=== PATIENT | male | born 2000 | race Caucasian/White ===

== ENCOUNTER → 2019-07-22 13:13 | Outpatient (BNVA) | payer SELFPAY | PROVIDERS: Visit Provider Nurse Practitioner Family | DX: R50.9 Fever, unspecified (principal) | CPT/HCPCS: 87400; 87635 ==

== ENCOUNTER 2020-06-21 12:14 | Emergency (ER) | payer SELFPAY ==
[2020-06-21 12:44] VITALS: BP 128/76; PULSE 97; RESP 16; TEMP 36.5; O2SAT 98; BMI 27.3
[2020-06-21 13:06] VITALS: PULSE 94
[2020-06-21 13:09] VITALS: BP 126/76; PULSE 97; RESP 16; O2SAT 98
--- NOTE | 2020-06-21 13:22 | W.ED.EXTPRO ---
HPI - Extremity Problem General: Chief complaint: Extremity Problem,Nontraumatic Stated complaint: numbness/tingling right hand Time Seen by Provider: 06/21/20 13:08 Source: patient Mode of arrival: ambulatory Limitations: no limitations History of Present Illness: HPI Narrative: Patient is a 20-year-old male who presents to ED today with complaints of intermittent paresthesias to his right upper extremity. Patient tells me he will notice symptoms with excessive use of his arms and also when he is sleeping. He states symptoms will improve if he hangs his arm down to the side. He reports paresthesias to all 5 digits. He states he does use his arms repetitively for work. He does not complain of neck pain. No recent injury or trauma. He has not noticed weakness to his arm. Patient has not noticed any swelling, color, or temperature changes. MD Complaint: other (tingling to R arm) Onset (ago): day(s) Pain Consistency: intermittent (no pain; only parasthesias ) Associated symptoms: Reports no associated symptoms; Deny chest pain or fever(s) Review of Systems Const: Denies: fever(s) or chills Eyes: Denies: change in vision, blurry vision or photophobia Card: Denies: chest pain, palpitations, irregular heart rhythm, edema, swelling of feet/ankles, lightheadedness, syncope, pre-syncope, dyspnea on exertion, orthopnea, leg pain with exertion or acrocyanosis Resp: Denies: dyspnea Musc: Reports: back pain; Denies: neck pain, extremity pain, extremity swelling, joint pain, joint swelling or limited range of motion Neuro: Reports: numbness in extremities and sensory changes; Denies: headache(s), weakness in extremities or dizziness [facility] ED PFS: Social History (Updated 06/21/20 @ 12:48 by Domingo Best RN) Smoking and tobacco status: current every day smoker cigarettes Packs smoked per day: 0.25 Alcohol intake: never Substance/Drug Use: never Physical Exam Const: COMMON NORMALS: no acute distress, average body habitus, patient oriented x3, no limitations, healthy appearing, alert and well nourished GENERAL APPEARANCE: cooperative ORIENTATION/CONSCIOUSNESS: Yes awake, Yes oriented to person, Yes oriented to place and Yes oriented to time HENMT: COMMON NORMALS: normocephalic and atraumatic HEAD & SCALP: normocephalic and atraumatic Neck/C-Spine: COMMON NORMALS: full ROM CERVICAL SPINE: Yes cervical ROM normal, No pain with cervical ROM, No Cervical spine tenderness and No Paracervical muscle tenderness Resp: COMMON NORMALS: normal respiratory effort and clear to auscultation bilaterally AUSCULTATION: clear to auscultation bilaterally Cardio: COMMON NORMALS: regular rate and regular rhythm RATE: regular rate RHYTHM: regular rhythm Back/Pelvis: COMMON NORMALS: thoracic and lumbar spine normal to inspection, no thoracic nor lumbar tenderness and thoraco-lumbar ROM normal THORACIC SPINE/UPPER BACK: Yes normal to inspection and Yes thoracic ROM normal LUMBAR SPINE/LOWER BACK: Yes normal to inspection and Yes lumbar ROM normal BACK IMAGE (MALE): 1. TTP Extremity: COMMON NORMALS: normal to inspection and full ROM GENERAL: Yes normal exam except as noted Neuro: COMMON NORMALS: patient oriented x3, moves all extremities, no focal motor deficits and no sensory deficits noted SENSORIUM/ORIENTATION: Yes alert, Yes oriented to person, Yes oriented to place and Yes oriented to time OTHER: reports he is not having any numbnes/tingling currently Skin: COMMON NORMALS: no rashes or lesions noted GENERAL SKIN EXAM: no rashes or lesions noted Course Vital Signs: Vital signs: Vital Signs Temperature 97.7 F 06/21/20 12:44 Pulse Rate 97 06/21/20 13:09 Respiratory Rate 16 06/21/20 13:09 Blood Pressure 126/76 06/21/20 13:09 Pulse Oximetry 98 06/21/20 13:09 Discharge Plan Discharge Patient Disposition: Home Clinical Impression: Right cervical radiculopathy Condition: Stable Prescriptions: New cyclobenzaprine 10 mg tablet 10 mg PO TID Qty: 14 RF: 0 diclofenac sodium 50 mg tablet,delayed release (DR/EC) 50 mg PO Q12H PRN (Reason: pain) Qty: 20 RF: 0 Medrol (Blake) 4 mg tablets,dose pack See Rx Instructions .ROUTE .COMPLEX Qty: 21 RF: 0 Discharge Orders: Discharge ED (Routine); Ordered 06/21/20 Ordered By: Flor Vora Patient Instructions: Cervical Radiculopathy (ED), Opioid Safety Activity Restrictions/Additional Instructions: [facility] the [facility] opiate epidemic. We are providing ALL patients with information regarding opiate safety. If you received opiate pain medication during your stay or if you received a prescription for opiate pain medication-please review this handout. If not, you may disregard. Thank you. As discussed I placed your information with case management to get you set up with a primary care provider in case symptoms do not improve. Stand Alone Forms: Work/School Release Coding Level of Care Code ED Toe Sewer for Petrona Littlejohn
--- NOTE | 2020-06-25 15:36 | DCPLANNER ---
athletic equipment manager had message to speak with patient about getting established with a primary care physician. athletic equipment manager called phone number [phone], unable to speak with patient at this time, a voicemail was left for patient to return family caseworker phone call.
== END 2020-06-21 14:43 | disposition home or self-care (01) ==
PROVIDERS: Emergency Provider Physician Assistant
DX: M54.12 Radiculopathy, cervical region (principal); F17.210 Nicotine dependence, cigarettes, uncomplicated
CPT/HCPCS: 99281

== ENCOUNTER → 2020-07-19 14:59 | Outpatient (BNVA) | payer OTHER, SELFPAY | PROVIDERS: Visit Provider Family Medicine Adult Medicine | DX: Z20.822 Contact with and (suspected) exposure to COVID-19 (principal) | CPT/HCPCS: 87635 ==

== ENCOUNTER → 2020-11-05 14:21 | Outpatient (BNVA) | payer BC, SELFPAY | PROVIDERS: Visit Provider Nurse Practitioner Family | DX: Z20.822 Contact with and (suspected) exposure to COVID-19 (principal) | CPT/HCPCS: 87635 ==

== ENCOUNTER 2021-05-13 18:35 | Emergency (ER) | payer BC, SELFPAY ==
[2021-05-13 18:53] VITALS: BP 122/59; PULSE 84; RESP 18; TEMP 37.1; O2SAT 100; BMI 28.8
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
[2021-05-13 22:19] VITALS: BP 125/63; PULSE 82; RESP 18; TEMP 37; O2SAT 100
== END 2021-05-13 22:20 | disposition home or self-care (01) ==
PROVIDERS: Emergency Provider Physician Assistant
DX: S69.92XA Unspecified injury of left wrist, hand and finger(s), initial encounter (principal); F17.210 Nicotine dependence, cigarettes, uncomplicated; X58.XXXA Exposure to other specified factors, initial encounter
CPT/HCPCS: 73110; 73130; 99282

== ENCOUNTER → 2022-11-20 13:01 | Outpatient (BNVA) | payer MEDICAID, SELFPAY | PROVIDERS: Visit Provider Nurse Practitioner Family | DX: Z72.51 High risk heterosexual behavior (principal) | CPT/HCPCS: 87491; 87591; 87661 ==

== ENCOUNTER 2023-08-08 13:39 | Emergency (ER) | payer SELFPAY ==
[2023-08-08 13:42] VITALS: BP 149/85; PULSE 87; RESP 20; O2SAT 95
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
[2023-08-08 14:18] LABS: Basophils # 0.1 10^3/uL (0.0-0.1); Basophils % 0.5 %; Eosinophils # 0.2 10^3/uL (0.0-0.8); Eosinophils % 1.4 %; Hematocrit 42.3 % (37-53); Lymphocytes # 1.9 10^3/uL (0.8-4.8); Lymphocytes % 16.9 %; Mean Corpuscular HGB Conc 35.2 g/dL (30-55); Mean Corpuscular Hemoglobin 30.4 pg (27-33); Mean Corpuscular Volume 86.3 fl (82-101); Mean Platelet Volume 9.5 fL (7.4-10.4); Monocytes # 0.8 10^3/uL (0.2-0.9); Monocytes % 6.9 %; Neutrophils # 8.11 10^3/uL (1.8-7.7); Neutrophils % 73.9 %; Nucleated Red Blood Cells % 0 %; Platelet Count 237 10^3/cmm (157-399); Red Cell Distribution Width 12.5 % (12.1-15.1); White Blood Count 10.98 10^3/uL (3.29-11.43)
[2023-08-08 14:37] LABS: Alanine Aminotransferase 28 U/L (0-41); Albumin Level 4.5 g/dL (3.5-5.2); Alkaline Phosphatase 128 U/L (40-130); Anion Gap 11.6 (5-19); Aspartate Amino Transferase 39 U/L (0-40); Blood Urea Nitrogen 16 mg/dL (6-20); Calcium 9.3 mg/dL (8.5-10.5); Carbon Dioxide 24 mmol/L (22-29); Chloride 105 mmol/L (98-107); Creatinine Clr Calc Pharmacy 149.1518; Globulin 2.6 g/dL (1.3-4.6); Glomerular Filtration Rate 118.8 mL/min (90-130); Glucose 113 mg/dL (65-115); Osmolality Calculated 284 mOsm/kg (285-295); Potassium 4.6 mmol/L (3.5-5.1); Sodium 136 mmol/L (136-145); Total Bilirubin 0.4 mg/dL (0.15-1.2); Total Protein 7.1 g/dL (6.6-8.7)
[2023-08-08] MEDS: tetanus-dipt-pertussis 0.5 mL SDV IM (15:20)
== END 2023-08-08 15:22 | disposition home or self-care (01) ==
PROVIDERS: Emergency Provider Family Medicine
DX: S40.211A Abrasion of right shoulder, initial encounter (principal); S30.811A Abrasion of abdominal wall, initial encounter; S20.311A Abrasion of right front wall of thorax, initial encounter; F17.210 Nicotine dependence, cigarettes, uncomplicated; V86.69XA Passenger of other special all-terrain or other off-road motor vehicle injured in nontraffic accident, initial encounter; Z23 Encounter for immunization
CPT/HCPCS: 36415; 70450; 71045; 71260; 72125; 73030; 74177; 80053; 85025; 90471; 90715; 99284; Q9967

== ENCOUNTER 2023-08-12 02:38 | Emergency (ER) | payer SELFPAY ==
[2023-08-12 02:41] VITALS: BP 145/82; PULSE 99; RESP 16; TEMP 36.6; O2SAT 99; BMI 27.3
[2023-08-12 02:50] VITALS: O2SAT 97
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
[2023-08-12 03:19] VITALS: BP 134/73; PULSE 77; O2SAT 98
== END 2023-08-12 03:24 | disposition home or self-care (01) ==
PROVIDERS: Emergency Provider Emergency Medicine
DX: S80.812A Abrasion, left lower leg, initial encounter (principal); S80.811A Abrasion, right lower leg, initial encounter; S20.313A Abrasion of bilateral front wall of thorax, initial encounter; S70.211A Abrasion, right hip, initial encounter; F17.210 Nicotine dependence, cigarettes, uncomplicated; V86.95XA Unspecified occupant of 3- or 4- wheeled all-terrain vehicle (ATV) injured in nontraffic accident, initial encounter
CPT/HCPCS: 99281